=== PATIENT | male | born 1960 | race African-American/Black ===

== ENCOUNTER 2020-12-26 20:58 | Emergency (ER) | payer OTHER ==
--- NOTE | 2020-12-26 21:26 | EDM.PDOC ---
ED HPI GENERAL MEDICAL PROBLEM - General Chief Complaint: General Stated Complaint: BODY ACHES Time Seen by Provider: 12/26/20 21:22 - History of Present Illness INITIAL COMMENTS - FREE TEXT/NARRATIVE: 60-year-old male presents with 3 days of not feeling well. Symptoms started with diffuse myalgias and body aches 3 days ago as well as a cough that is occasionally productive no neck pain no headache no chest pain no abdominal pain no nausea vomiting or diarrhea. Patient has been taking NyQuil for symptoms. But now that we are on day 3 he felt he should come and get checked out. He has a history of hypertension which he takes medication for he is otherwise well. Upper Back Pain Score (Numeric/FACES): 3 - Related Data Allergies Allergy/AdvReac Type Severity Reaction Status Date / Time No Known Allergies Allergy Verified 12/26/20 21:20 Home Meds: Home Meds . [No Known Home Meds] 03/13/16 [History] Past Medical History Gastrointestinal History: Reports: Hemorrhoids Social & Family History - Family History Family Medical History: No Pertinent Family History ED ROS GENERAL - Review of Systems Review Of Systems: See Below Free Text/Narrative/Comment: General: No fever. Skin: No rash. Eyes: No vision problems. ENT: No sore throat. Neck: No neck stiffness. Respiratory: Per HPI Cardiac: No chest pain. Gastrointestinal: No nausea, vomiting or abdominal pain. Urinary: No dysuria. Musculoskeletal: Per HPI Neurologic: No headache. ED EXAM, GENERAL - Physical Exam Exam: See Below Free Text/Narrative:: General Appearance: No acute distress, appears comfortable Skin: No rash HEENT: Normocephalic/atraumatic, sclera anicteric, mucous membranes moist Neck: Normal range of motion Chest and Lungs: Bilateral breath sounds, scant rhonchi left base, no wheezing normal work of breathing no stridor Cardiovascular: Regular rate and rhythm, no murmur Abdomen: Soft, non-tender Back: Normal Musculoskeletal: No edema or tenderness Neurologic: Awake, alert, no obvious deficits, moving all extremities Psychiatric: Appropriate, cooperative Course - Vital Signs Last Recorded V/S: Last Vital Signs Temp 98.8 F 12/26/20 21:22 Pulse 70 12/26/20 21:22 Resp 18 12/26/20 21:22 BP 144/80 H 05/03/21 21:22 Pulse Ox - Orders/Labs/Meds Labs: Laboratory Tests 12/26/20 Range/Units 21:40 Influenza Type A RNA NEGATIVE (NEGATIVE) Influenza Type B RNA NEGATIVE (NEGATIVE) SARS-CoV-2 RNA ([facility]) POSITIVE H (NEGATIVE) Departure - Departure Time of Disposition: 22:59 Disposition: Home, Self-Care 01 Condition: Good Clinical Impression: COVID-19 - Discharge Information *PRESCRIPTION DRUG MONITORING PROGRAM REVIEWED*: Not Applicable *COPY OF PRESCRIPTION DRUG MONITORING REPORT IN PATIENT VIDAL: Not Applicable Instructions: COVID-19 Frequently Asked Questions, 10 Things You Can Do to Manage Your COVID-19 Symptoms at Home - CDC, COVID-19: How to Protect Yourself and Others - [facility] Forms: ED Department Discharge Additional Instructions: COVID-19 symptoms typically last 7 to 10 days. If your shortness of breath worsens please call your doctor or return to the ER. The following information is given to patients seen in the emergency department who are being discharged to home. This information is to outline your options for follow-up care. We provide all patients seen in our emergency department with a follow-up referral. The need for follow-up, as well as the timing and circumstances, are variable depending upon the specifics of your emergency department visit. If you don't have a primary care physician on staff, we will provide you with a referral. We always advise you to contact your personal physician following an emergency department visit to inform them of the circumstance of the visit and for follow-up with them and/or the need for any referrals to a consulting specialist. The emergency department will also refer you to a specialist when appropriate. This referral assures that you have the opportunity for follow-up care with a specialist. All of these measure are taken in an effort to provide you with optimal care, which includes your follow-up. Under all circumstances we always encourage you to contact your private physician who remains a resource for coordinating your care. When calling for follow-up care, please make the office aware that this follow-up is from your recent emergency room visit. If for any reason you are refused follow-up, please contact the [facility] Emergency Department at and asked to speak to the emergency department charge nurse. Sepsis Event Note (ED) - Focused Exam Vital Signs: Vital Signs Temp Pulse Resp BP 12/26/20 21:22 98.8 F 70 18 144/80 H - Assessment/Plan Assessment:: 60-year-old male presented with signs and symptoms most consistent with viral respiratory infection given focality on lung exam x-ray to exclude bacterial pneumonia has been ordered. Covid flu swab ordered as well. No signs of deep space infection of the head or neck. Strep considered but cough myalgias make this less likely. 2204: Chest x-ray without signs of pneumonia or other acute infectious process. Though there is a nonspecific right mediastinal fullness the patient has no chest pain tearing or otherwise I do not have a clinical concern for aortic dissection at this time. Likewise patient has no wheezing no signs of air trapping I think he did simply take a significant inspiration prior to chest x- ray. Covid swab pending. Hopeful for discharge his vital signs are normal no indication for steroids or admission if Covid positive. 2300: Patient does indeed have COVID-19. Standard precautions discussed and understood.
--- NOTE | 2020-12-26 22:01 | CR ---
INDICATION: Cough. TECHNIQUE: AP portable chest x-ray. FINDINGS: Heart size is upper limits of normal. Lungs are hyperinflated or there has been a deep inspiration. Lungs are clear without infiltrate or consolidation. Degenerative changes in the AC joints. The right mediastinal shadow may be slightly prominent which is nonspecific but I suspect this is most likely vascular in nature. Chest otherwise negative without acute disease. Dictated by Carlos Hidalgo MD @ 12/26/2020 10:00:[address] Carlos Hidalgo @ Dec 26 2020 10:00PM
[2020-12-26 22:26] LABS: CORONAVIRUS COVID-19 NAA POSITIVE (NEGATIVE); INFLUENZA A NAA NEGATIVE (NEGATIVE); INFLUENZA B NAA NEGATIVE (NEGATIVE)
[2020-12-26 23:09] VITALS: BP 138/76; PULSE 72
== END 2020-12-26 23:09 | disposition home or self-care (01) ==
LOC: MW.ED 20:58
DX: U07.1 COVID-19 (principal)
CPT/HCPCS: 0240U; 71045; 99283; 99282